=== PATIENT | female | born 1965 | race Caucasian/White ===

== ENCOUNTER 2021-09-19 13:50 | Outpatient (CLI) | payer OTHER, SELFPAY | END 2021-09-19 13:51 | disposition home or self-care (01) | LOC: LKVREF 13:53 | PROVIDERS: PCP Physician Assistant Medical; Visit Provider Nurse Practitioner Family | DX: M79.651 Pain in right thigh (principal); W57.XXXA Bitten or stung by nonvenomous insect and other nonvenomous arthropods, initial encounter | CPT/HCPCS: 86618 ==

== ENCOUNTER 2022-05-02 10:40 | Emergency (ER) | payer OTHER, SELFPAY ==
[2022-05-02] VITALS (19 sets, daily range): BP systolic 123–150; BP diastolic 62–89; PULSE 74–84; RESP 20; TEMP 36.3; O2SAT 96–100; BMI 24.9
--- NOTE | 2022-05-02 11:40 | CRLHL7_ITS ---
For Patients: As a result of the Century Cures Act, medical imaging exams and procedure reports are released immediately into your electronic medical record. You may view this report before your referring provider. If you have questions, please contact your health care provider. INDICATION: Abdominal pain. TECHNIQUE: CT abdomen and pelvis acquired with 71 cc Omnipaque 370 IV contrast. COMPARISON: 12/04/2020. FINDINGS: Lower chest: Scattered calcified granulomas at the lung bases. Liver: Few small hepatic calcifications, compatible with prior granulomatous infection. No suspicious hepatic lesion. Gallbladder and bile ducts: Unremarkable. No stones or inflammation. No biliary dilatation. Pancreas: Unremarkable. No mass or inflammation. Spleen: A few small calcified splenic granulomas Adrenal glands: Unremarkable. No nodules. Kidneys: Few hyperdense renal cortical lesions that are too small to characterize, likely cysts. GI tract: Scattered fluid-filled small-bowel loops, some of which are borderline dilated measuring up to approximately 2.5 centimeters. Distal small bowel loops. Distal loops are relatively decompressed. No abrupt transition is evident. Status post appendectomy. Scattered colonic diverticula without evidence of acute diverticulitis. Vasculature: Abdominal aorta is normal in caliber. Mesenteric arteries are patent. Lymph nodes: No lymphadenopathy. Peritoneum/Abdominal Wall: Unremarkable. No sign of mass or infiltration. No free air or significant free fluid. Pelvis: Status post hysterectomy Bones: Degenerative spondylosis IMPRESSION: 1. Multiple fluid-filled small bowel loops, some of which are borderline dilated. Distal loops appear relatively decompressed. No discrete transition is evident. This pattern is nonspecific. Consider enteritis as well as low-grade partial small bowel obstruction. 2. Colonic diverticulosis without evidence of acute diverticulitis. 3. Status post appendectomy and hysterectomy. 4. sequela of prior granulomatous disease Please note that all CT scans at this facility use dose modulation, iterative reconstruction, and/or weight-based dosing when appropriate to reduce radiation dose to as low as reasonably achievable. Dictated by Neto Mckenna MD @ 05/02/2022 1:43:34 PM (Electronically Signed)
[2022-05-02] MEDS: 0.9 % SODIUM CHLORIDE 1000 ml 1,000 ML IV (11:43)
[2022-05-02 11:44] LABS: Lactate* 0.8 mmol/L (0.5-1.9)
[2022-05-02 11:45] LABS: Basophils Absolute Auto 0.03 K/uL (0.00-0.30); Basophils Percent Auto 0.4 % (0.0-3.0); Eosinophils Absolute Auto 0.03 K/uL (0.00-0.50); Eosinophils Percent Auto 0.4 % (0.0-7.0); Hemoglobin* 15.2 gm/dL (12.0-16.0); Immature Granulocytes Abs Auto 0.01 K/uL (0.00-0.30); Immature Granulocytes Pct Auto 0.1 %; Lymphocytes Absolute Auto 1.99 K/uL (0.90-2.90); Lymphocytes Percent Auto 24.7 % (20-44); Mean Corpuscular HGB Conc 35 gm/dL (32-36); Mean Corpuscular Hemoglobin 32 pg (26-34); Mean Corpuscular Volume 94 fL (80-100); Monocytes Percent Auto 6.7 % (0.0-11.0); Neutrophils Absolute Auto 5.45 K/uL (1.7-7.0); Neutrophils Percent Auto 67.7 % (42.0-72.0); Platelet Count* 278 K/uL (140-440); RDW Coefficient of Variation % 11.4 % (11.5-15.5); Red Blood Count 4.69 m/uL (4.00-5.20); White Blood Count* 8.05 K/uL (4.50-11.00)
[2022-05-02] MEDS: ONDANSETRON 2 MG/ML inj 4 MG IVP (11:55)
[2022-05-02 11:57] LABS: Slide Review Reflex No
[2022-05-02] MEDS: MORPHINE 2 MG/ML inj IVP (11:57)
[2022-05-02 12:04] LABS: Albumin* 4.6 g/dL (3.3-5.0)
[2022-05-02 12:05] LABS: Chloride* 103 mmol/L (96-114); Potassium* 3.8 mmol/L (3.6-5.1); Sodium* 136 mmol/L (135-149)
[2022-05-02 12:07] LABS: Amylase* 80 U/L (18-89); Bilirubin Total* 1.7 mg/dL (0.1-1.5); Carbon Dioxide* 25 mmol/L (20-32); Creatinine* 0.5 mg/dL (0.5-1.5); Est. Creatinine Clearance* 105.91; Estimated Glomerular Filt Rate 109 ml/min; Total Protein* 7.6 g/dL (6.0-8.3)
[2022-05-02 12:08] LABS: Alanine Aminotransferase* 22 U/L (4-35); Alkaline Phosphatase* 111 U/L (40-150); Aspartate Amino Transferase* 27 U/L (12-35); Blood Urea Nitrogen* 16 mg/dL (7-30); Calcium* 9.2 mg/dL (8.4-10.6); Glucose* 98 mg/dL (60-115)
[2022-05-02 12:36] LABS: Appearance Urine Clear (Clear); Bilirubin Urine Negative (Negative); Blood Urine Negative (Negative); Color Urine Yellow (Yellow); Glucose Urine Negative (Negative); Ketones Urine Negative (Negative); Leukocyte Esterase Urine Negative (Negative); Nitrite Urine Negative (Negative); Protein Urine Negative (Negative); Specific Gravity Urine 1.015 (1.000-1.030); Urobilinogen Urine 0.2 (0.2-1.0); pH Urine 5.5 (5.0-8.5)
--- NOTE | 2022-05-02 12:57 | ED_ITS ---
HPI - Abdominal Pain General Chief Complaint: Abdominal Pain Stated Complaint: diverticulitus Time Seen by Provider: 05/02/22 11:20 History of Present Illness HPI narrative: Pt is a 56 year old woman with a history of repeated episodes of diverticulitis who presents with left sided lower abd pain. Mild nausea also noted. No fever or chills. No vomiting. Pt has had diarrhea but no blood passed per rectum. Pt states that this is consistent with previous episodes of diverticulitis. Pt has had no travel or sick contacts. Pain is sharp and moderate. Symptoms started last night and have progressed today. Pt does not tolerate Flagyl. Related Data Previous Rx's Medication Instructions Recorded citalopram 40 mg tablet 40 mg PO DAILY #90 tabs 10/22/21 hydrochlorothiazide 25 mg tablet 25 mg PO DAILY #90 tabs 10/22/21 losartan 50 mg tablet 50 mg PO DAILY #90 tabs 10/22/21 Allergies Allergy/AdvReac Type Severity Reaction Status Date / Time ibuprofen Allergy Severe Hives Verified 05/02/22 12:05 Erythromycin Allergy Mild Rash Uncoded 05/02/22 12:05 Review of Systems Status of ROS Reports: 10 or more systems reviewed and unremarkable except as noted in History and below [facility] Medical History Diverticulitis Surgical History History of colonoscopy with polypectomy Status post total replacement of left hip Status post total replacement of right hip Social History Smoking Status: Former smoker Do you use any of these nicotine containing products: Vaping Products Second hand tobacco smoke exposure: No How often do you have a drink containing alcohol: 2-3 times a week How many standard drinks containing alcohol do you have on a typical day: 1 or 2 How often do you have six or more drinks on one occasion: Never AUDIT-C Alcohol total score: 3 Non-prescribed substance use: denies use Exam Narrative: Exam Narrative: EXAM GENERAL: Patient appears comfortable and well. EYES: No scleral icterus. LYMPH: No supraclavicular or cervical lymphadenopathy. SKIN: Visible skin seen during exam normal or with benign process only. EXT: No dependent lower extremity pedal edema. HEART: Regular rate and rhythm with no murmurs, rubs, or gallops. LUNGS: Clear to auscultation bilaterally with no crackles or wheezes. ABD: Soft, minimally tender in left lower quadrant no rebound masses or guarding. PSYCH: Good eye contact, speech is not pressured. Const: Vital Signs, click to edit/add: Vital Signs - 24 hr 05/02/22 11:11 05/02/22 11:30 05/02/22 11:32 Temperature 97.3 F L Pulse Rate 75 74 Pulse Rate [Pulse Oximeter] 79 Respiratory Rate 20 Blood Pressure 133/86 Blood Pressure [Ri ght Upper Arm] 135/80 Pulse Oximetry 100 99 99 Oxygen Delivery Me thod Room Air 05/02/22 11:33 05/02/22 11:45 05/02/22 12:00 Temperature Pulse Rate 76 80 76 Pulse Rate [Pulse Oximeter] Respiratory Rate Blood Pressure Blood Pressure [Ri ght Upper Arm] Pulse Oximetry 99 96 99 Oxygen Delivery Me thod 05/02/22 12:01 05/02/22 12:02 05/02/22 12:15 Temperature Pulse Rate 77 74 75 Pulse Rate [Pulse Oximeter] Respiratory Rate Blood Pressure 131/86 Blood Pressure [Ri ght Upper Arm] Pulse Oximetry 98 97 99 Oxygen Delivery Me thod 05/02/22 12:33 05/02/22 12:34 05/02/22 12:45 Temperature Pulse Rate 80 82 84 Pulse Rate [Pulse Oximeter] Respiratory Rate Blood Pressure 150/62 H Blood Pressure [Ri ght Upper Arm] Pulse Oximetry 98 100 99 Oxygen Delivery Me thod 05/02/22 13:00 05/02/22 13:01 Temperature Pulse Rate 80 84 Pulse Rate [Pulse Oximeter] Respiratory Rate Blood Pressure 142/89 H Blood Pressure [Ri ght Upper Arm] Pulse Oximetry 99 98 Oxygen Delivery Me thod Course Course Hospital Course: CT of abd and pelvis shows enteritis. No bowel obstruction. Labs reassuring. Vital Signs Vital signs: Initial Vital Signs Temperature 97.3 F L 05/02/22 11:11 Temperature Source Temporal Artery Scan 05/02/22 11:11 Pulse Rate 79 05/02/22 11:11 Respiratory Rate 20 05/02/22 11:11 Blood Pressure 135/80 05/02/22 11:11 Blood Pressure Mean 98 05/02/22 11:11 Blood Pressure Position Sitting 05/02/22 11:11 Pulse Oximetry 100 05/02/22 11:11 Oxygen Delivery Method 05/02/22 11:11 Vital Signs Temperature 97.3 F L 05/02/22 11:11 Pulse Rate 79 05/02/22 11:11 Respiratory Rate 20 05/02/22 11:11 Blood Pressure 135/80 05/02/22 11:11 Pulse Oximetry 100 05/02/22 11:11 Oxygen Delivery Method 05/02/22 11:11 Temperature 97.3 F L 05/02/22 11:11 Pulse Rate 84 05/02/22 13:01 Respiratory Rate 20 05/02/22 11:11 Blood Pressure 142/89 H 05/02/22 13:01 Pulse Oximetry 98 05/02/22 13:01 Oxygen Delivery Method 05/02/22 11:11 MDM - Abdominal Pain MDM Narrative Medical decision making narrative: Pt is a 56 year old woman with recurrent diverticulitis who comes in with left sided abd pain. Labs reassuring. CT shows eneritis without bowel obstruction. Pt passing gas. Pt given zofran, normal saline, morphine with resolution of symptoms. Will proceed with symptomatic treatment, bland diet, PCP follow up. Differential Diagnosis Differential diagnosis: Likely abdominal pain, acute appendicitis, calculus of kidney, constipation, diverticulitis, endometriosis, gastroenteritis and small bowel obstruction Medical Records Attestation: I reviewed the patient's medical records. Lab Data Labs: Lab Results 05/02/22 05/02/22 05/02/22 Range/Units 11:35 11:35 11:35 WBC 8.05 (4.50-11.00) K/uL RBC 4.69 (4.00-5.20) m/uL Hgb 15.2 (12.0-16.0) gm/dL Hct 44.0 (33.0-51.0) % MCV 94 (80-100) fL MCH 32 (26-34) pg MCHC 35 (32-36) gm/dL RDW Coeff of Mehul 11.4 L (11.5-15.5) % Plt Count 278 (140-440) K/uL Neut % (Auto) 67.7 (42.0-72.0) % Lymph % (Auto) 24.7 (20-44) % Baker % (Auto) 6.7 (0.0-11.0) % Eos % (Auto) 0.4 (0.0-7.0) % Baso % (Auto) 0.4 (0.0-3.0) % Neut # (Auto) 5.45 (1.7-7.0) K/uL Lymph # (Auto) 1.99 (0.90-2.90) K/uL Baker # (Auto) 0.50 (0.00-0.90) K/UL Eos # (Auto) 0.03 (0.00-0.50) K/uL Baso # (Auto) 0.03 (0.00-0.30) K/uL Sodium 136 (135-149) mmol/L Potassium 3.8 (3.6-5.1) mmol/L Chloride 103 (96-114) mmol/L Carbon Dioxide 25 (20-32) mmol/L BUN 16 (7-30) mg/dL Creatinine 0.5 (0.5-1.5) mg/dL Estimated Creat Clear 105.91 Estimated GFR 109 ml/min Glucose 98 (60-115) mg/dL Lactate 0.8 (0.5-1.9) mmol/L Calcium 9.2 (8.4-10.6) mg/dL Total Bilirubin 1.7 H (0.1-1.5) mg/dL AST 27 (12-35) U/L ALT 22 (4-35) U/L Alkaline Phosphatase 111 (40-150) U/L Total Protein 7.6 (6.0-8.3) g/dL Albumin 4.6 (3.3-5.0) g/dL Amylase 80 (18-89) U/L Urine Color (Yellow) Urine Appearance (Clear) Urine pH (5.0-8.5) Ur Specific [place] (1.000-1.030) Urine Protein (Negative) Urine Glucose (UA) (Negative) Urine Ketones (Negative) Urine Blood (Negative) Urine Nitrite (Negative) Urine Bilirubin (Negative) Urine Urobilinogen (0.2-1.0) Ur Leukocyte Esterase (Negative) 05/02/22 Range/Units 12:28 WBC (4.50-11.00) K/uL RBC (4.00-5.20) m/uL Hgb (12.0-16.0) gm/dL Hct (33.0-51.0) % MCV (80-100) fL MCH (26-34) pg MCHC (32-36) gm/dL RDW Coeff of Mehul (11.5-15.5) % Plt Count (140-440) K/uL Neut % (Auto) (42.0-72.0) % Lymph % (Auto) (20-44) % Baker % (Auto) (0.0-11.0) % Eos % (Auto) (0.0-7.0) % Baso % (Auto) (0.0-3.0) % Neut # (Auto) (1.7-7.0) K/uL Lymph # (Auto) (0.90-2.90) K/uL Baker # (Auto) (0.00-0.90) K/UL Eos # (Auto) (0.00-0.50) K/uL Baso # (Auto) (0.00-0.30) K/uL Sodium (135-149) mmol/L Potassium (3.6-5.1) mmol/L Chloride (96-114) mmol/L Carbon Dioxide (20-32) mmol/L BUN (7-30) mg/dL Creatinine (0.5-1.5) mg/dL Estimated Creat Clear Estimated GFR ml/min Glucose (60-115) mg/dL Lactate (0.5-1.9) mmol/L Calcium (8.4-10.6) mg/dL Total Bilirubin (0.1-1.5) mg/dL AST (12-35) U/L ALT (4-35) U/L Alkaline Phosphatase (40-150) U/L Total Protein (6.0-8.3) g/dL Albumin (3.3-5.0) g/dL Amylase (18-89) U/L Urine Color Yellow (Yellow) Urine Appearance Clear (Clear) Urine pH 5.5 (5.0-8.5) Ur Specific [place] 1.015 (1.000-1.030) Urine Protein Negative (Negative) Urine Glucose (UA) Negative (Negative) Urine Ketones Negative (Negative) Urine Blood Negative (Negative) Urine Nitrite Negative (Negative) Urine Bilirubin Negative (Negative) Urine Urobilinogen 0.2 (0.2-1.0) Ur Leukocyte Esterase Negative (Negative) Discharge Plan Discharge Clinical Impression: Enteritis Condition: Stable Instructions: Enteritis (ED) Additional Instructions: Clear liquid diet for the next 3 days Tylenol Motrin Rest Follow up with PCP next week. Activity Level: No Restrictions Discharge Diet: Clear Liquid Prescriptions: No Action losartan 50 mg tablet 50 mg PO DAILY Qty: 90 3RF Rx Instructions: For blood pressure citalopram 40 mg tablet 40 mg PO DAILY Qty: 90 3RF Rx Instructions: For mood support hydrochlorothiazide 25 mg tablet 25 mg PO DAILY Qty: 90 3RF Rx Instructions: For blood pressure Follow Up/Referrals: Kayleigh Bermudez PA-C [Primary Care Provider] - Stand Alone Forms: [employer] Info Instructions
== END 2022-05-02 14:04 | disposition home or self-care (01) ==
PROVIDERS: Emergency Provider Internal Medicine; PCP Physician Assistant Medical
DX: K52.9 Noninfective gastroenteritis and colitis, unspecified (principal)
CPT/HCPCS: 36415; 74177; 80053; 81003; 82150; 83605; 85025; 96374; 96375; 99283; 99284; J2270; J2405; J7030; Q9967

== ENCOUNTER 2022-12-12 09:29 | Outpatient (CLI) | payer OTHER, SELFPAY ==
--- OUTSIDE RECORDS SUMMARY | 2022-12-12 09:35 | XMS_ITS | Continuity of Care Document ---
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 Name Role Phone Matt Hoover DO Unavailable Unavailable Allergies, Adverse Reactions, Alerts Substance Reaction Status Criticality NSAIDS (Non-Steroidal Anti-Inflammatory Drug) Active No Information erythromycin base Active No Informa tion Medications Medication Instructions Dosage Effective Dates (start - stop) Status Comments Vivelle-Dot 0.075 mg/24 hr Transderm Patch apply 1 patch by transdermal route 2 times every week 1 patch - Active multivitamin Tab take 1 tablet by ora l route every day 1 tablet - Active Vitamin D3 2,000 unit Tab take 1 Tablet by Oral route 3 times every day 1 Tablet - Active flaxseed oil 1,000 mg Cap take 1 Capsule by Oral route 2 times every day - Active Procedures Procedure Date Office/Outpatient Visit, New Routine Venipuncture Specimen Handling CReactive Protein Complete Cbc WAuto Diff Wbc Rbc Sed Rate, Nonautomated Results Test Name Date and Time Measure Units Reference Range Abnormal Flag Status Comments Panel Description: Celiac Disease Ab Screen w/Rf x Final Deamidated Gliadin Abs, IgA 2012 16:10:0 0 2 units 0-19 Final Negative 0 - 1 9 Weak Positive 20 - 30 Moderate to Strong Positive >30 t-Transglutamina se (tTG) IgA 2012 16:10:0 0 <2 U/mL 0-3 Final Negative 0 - 3 Weak Positive 4 - 10 Positive >10 . Tissue Transglutaminase (tTG) has been identified as the endomysial antigen. Studies have demonstr- ated that endomysial IgA antibodies have over 99% specificity for gluten sensitive enteropathy. Immunoglobulin A, Qn, Serum 2012 16:10:0 0 106 mg/dL 91-414 Final Panel Description: Endomysial Antibody IgA Kika sifuentes Endomysial Antibody IgA 2012 16:10:0 0 Negative Negative Final Panel Description: HCV Ab w/Rflx to Verification Final HCV Ab 2012 16:10:0 0 0.0 s/co ratio 0.0-0.9 Final Panel Description: Rheumatoid Arthritis Factor Final RA Latex Turbid. 2012 16:10:0 0 31.6 IU/mL 0.0-13.9 H Final Panel Description: Comment: Final Comment: 2012 16:10:0 0 Comment Final Non reactive H CV antibody screen is consistent with no HCV infection,unless recent infection is suspected or other evidence exists toindicate HCV infection. Panel Description: CBC Final WBC 2012 15:24:0 0 6.5 K/uL 3.5-10.8 Final Lymphocyte% 2012 15:24:0 0 34.1 % 15.1-43.0 Final Mid% 2012 15:24:0 0 6.4 % 1.0-18.0 Final Gran% 2012 15:24:0 0 59.5 % 45.0-76.0 Final Lymphocyte # 2012 15:24:0 0 2.2 K/uL 0.9-5.2 Final Mid # 2012 15:24:0 0 0.4 K/uL 0.1-2.0 Final Gran # 2012 15:24:0 0 3.9 K/uL 1.4-9.1 Final RBC 2012 15:24:0 0 4.45 M/uL 3.80-5.20 Final Hemoglobin 2012 15:24:0 0 14.0 g/dL 11.5-16.0 Final Hematocrit 2012 15:24:0 0 41.5 % 36.0-49.0 Final MCV 2012 15:24:0 0 93 fL 81-100 Final MCH 2012 15:24:0 0 32 pg 27-35 Final MCHC 2012 15:24:0 0 33.7 g/dL 31.0-37.5 Final MPV 2012 15:24:0 0 10.1 fL 7.0-10.4 Final Platelet Count 2012 15:24:0 0 323 K/uL 130-400 Final Panel Description: ESR Final ESR 2012 15:24:0 0 6 mm/hr 0-25 Final Panel Description: CRP Final CRP 2012 15:31:0 0 0.17 MG/DL 0.00-0.60 Final Advance Directives Directive Yes / No Effective Date File Name Resuscitation Not Answered N/A N/A Life Support Not Answered N/A N/A Intubation Not Answered N/A N/A Antibiotics Not Answered N/A N/A IV Fluid Support Not Answered N/A N/A Tube Feed Not Answered N/A N/A Other Directive N/A N/A WARNING:The information contained in this section is historical and is provided for information only and does not constitute a legal document or any assurance that the information is still accurate. Please verify the information with the hare of the legal document before using it for clinical purposes. Encounters Encounter Description Practice Location Reason(s) For Visit Diagnoses Date Provider Providers Copied on Encounter Office/Outpa tient Visit, [facility] , [address], [place], [address], [place] tel:[phone] [facility] , Musculoskele milagro Pain (chief complaint) Myalgia and myositis, unspecifiedP ain in joint involving multiple sitesLumbago Jun- 0-201 3 Kiko Gutierrez. [facility] [address], [place], [address], [place]. tel:[phone] Referring Provider: Matt Sifuentes, [facility] [address], [place], [address]. tel:[phone] [facility] , [address], [place], [address], [place] tel:[phone] [facility] , No Information 3 Kiko Gutierrez. [facility] [address], [place], [address], [place]. tel:[phone] Family History Family Member Type Diagnosis Age At Onset No Information Payers Payer name Insurance type Covered green party ID Perfecto lopez(nicol Gilmore [id number] Social History Type Description Quantity Date Captured Comments Alcohol Use Details 5 glasses weekly 3 Caffeine Use Details Unknown Tobacco Use Status No Information Smoking Status Former smoker Smoking Tobacco Use Details Cigarette: No Details Available Cigarette: No Details Available Sex Female Vital Signs Date / Time: Height Weight BMI Pulse Rate Blood Pressure Temperature Respiratory Rate Body Surface Area Head Circumference Head Circ. Percentile Wt./Velasquez. Percentile BMI percentile Pulse Ox Inhaled Ox 1:04 PM 64.00 in 150.00 lbs 25.7 4 kg/m eter (2) 112/76 mm[Hg] 97.50 F Chief Complaint And Reason For Visit From encounter dated '07/01/2012 13:00'. Musculoskeletal Pain (chief complaint) Reason For Referral Reason For Referral No Information History Of Present Illness Encounter Date Complaint History Of Prese nt Illness No Information Functional Status Date Functional Assessmen t No Information Instructions Date Instruction Additional Infor mation No Information Assessments Type Assessment Date No Information Mental Status Date Cognitive Assessment Orientation - [place] ed to time, place, person, situation. Patient Care Teams Name Effective Dates (start - stop) Status Members No Information
== END 2022-12-12 09:30 | disposition home or self-care (01) ==
PROVIDERS: PCP Physician Assistant Medical; Visit Provider Physician Assistant Medical
DX: Z00.00 Encounter for general adult medical examination without abnormal findings (principal); I10 Essential (primary) hypertension; R42 Dizziness and giddiness; F41.9 Anxiety disorder, unspecified; Z13.6 Encounter for screening for cardiovascular disorders; Z13.29 Encounter for screening for other suspected endocrine disorder; Z13.21 Encounter for screening for nutritional disorder; R51.9 Headache, unspecified
CPT/HCPCS: 80053; 80061; 82306; 82607; 84443

== ENCOUNTER 2024-05-06 08:20 | Outpatient (CLI) | payer OTHER, SELFPAY | END 2024-05-06 08:21 | disposition home or self-care (01) | PROVIDERS: PCP Physician Assistant Medical; Visit Provider Physician Assistant Medical | DX: E55.9 Vitamin D deficiency, unspecified (principal); I10 Essential (primary) hypertension; R10.13 Epigastric pain; F41.9 Anxiety disorder, unspecified; Z13.6 Encounter for screening for cardiovascular disorders; Z13.0 Encounter for screening for diseases of the blood and blood-forming organs and certain disorders involving the immune mechanism | CPT/HCPCS: 80053; 80061; 80076; 83690; 87086 ==

== ENCOUNTER 2024-05-06 10:28 | Outpatient (CLI) | payer OTHER, SELFPAY | END 2024-05-06 10:29 | disposition home or self-care (01) | LOC: US 10:29 | PROVIDERS: PCP Physician Assistant Medical; Visit Provider Physician Assistant Medical | DX: R10.13 Epigastric pain (principal); K76.0 Fatty (change of) liver, not elsewhere classified | CPT/HCPCS: 76705 ==

== ENCOUNTER 2024-05-10 13:02 | Outpatient (CLI) | payer OTHER, SELFPAY | END 2024-05-10 13:03 | disposition home or self-care (01) | LOC: NFLDREF 05-13 03:58 | PROVIDERS: PCP Physician Assistant Medical; Referring Provider Physician Assistant Medical; Visit Provider Physician Assistant Medical | DX: R10.13 Epigastric pain (principal); E87.6 Hypokalemia | CPT/HCPCS: 80076 ==

== ENCOUNTER 2024-05-11 06:45 | Outpatient (CLI) | payer OTHER, SELFPAY | END 2024-05-11 06:46 | disposition home or self-care (01) | LOC: NFLDREF 05-16 14:18 | PROVIDERS: PCP Physician Assistant Medical; Referring Provider Physician Assistant Medical; Visit Provider Physician Assistant Medical | DX: R10.13 Epigastric pain (principal); E87.6 Hypokalemia | CPT/HCPCS: 87338 ==

== ENCOUNTER 2024-05-24 09:50 | Outpatient (CLI) | payer OTHER, SELFPAY ==
--- NOTE | 2024-05-24 10:57 | W.ANESCHARGE ---
Anesthesia Charges Start Date/Time Anesthesia Start Date: 05/24/24 Anesthesia Start Time: 10:35 Stop Date/Time Anesthesia Stop Date: 05/24/24 Anesthesia Stop Time: 10:55 Coding CPT Codes CPT Codes: ANES UPR GI NDSC PX NOS - 54994 ([id number]) P2 - PATIENT W/MILD SYST DISEASE, QK - PSYCHOLOGICAL OPERATIONS 2-4 CNCRNT ANES PROC, QX - OIL SPRAYER SVC W/ MD MED DIRECTION
--- NOTE | 2024-05-24 10:58 | W.ANESCHARGE ---
Anesthesia Charges Start Date/Time Anesthesia Start Date: 05/24/24 Anesthesia Start Time: 10:35 Stop Date/Time Anesthesia Stop Date: 05/24/24 Anesthesia Stop Time: 10:55 Coding CPT Codes CPT Codes: ANES UPR GI NDSC PX NOS - 57132 ([id number]) P2 - PATIENT W/MILD SYST DISEASE, QK - STEEL CHIPPER 2-4 CNCRNT ANES PROC, QX - ENTRY LEVEL JAVA DEVELOPER SVC W/ MD MED DIRECTION
== END 2024-05-24 09:51 | disposition home or self-care (01) ==
LOC: OP CLINIC 09:50
PROVIDERS: PCP Physician Assistant Medical; Visit Provider Surgery
DX: R10.13 Epigastric pain (principal); K44.9 Diaphragmatic hernia without obstruction or gangrene; K31.7 Polyp of stomach and duodenum; K31.89 Other diseases of stomach and duodenum
CPT/HCPCS: 00731; 43239; 88305; J2405; J2704; J3490

== ENCOUNTER 2024-06-14 08:20 | Outpatient (CLI) | payer OTHER, SELFPAY | END 2024-06-14 08:21 | disposition home or self-care (01) | PROVIDERS: PCP Physician Assistant Medical; Visit Provider Physician Assistant Medical | DX: R10.13 Epigastric pain (principal); E55.9 Vitamin D deficiency, unspecified; R63.4 Abnormal weight loss; Z13.29 Encounter for screening for other suspected endocrine disorder | CPT/HCPCS: 80053; 82306; 84443 ==

== ENCOUNTER 2024-06-22 11:02 | Outpatient (CLI) | payer OTHER, SELFPAY ==
--- NOTE | 2024-06-22 11:30 | CRLHL7_ITS ---
For Patients: As a result of the Century Cures Act, medical imaging exams and procedure reports are released immediately into your electronic medical record. You may view this report before your referring provider. If you have questions, please contact your health care provider. INDICATION: 59-year-old woman with history of epigastric pain TECHNIQUE: 7.1 mCi Tc 99m Mebrofenin were administered intravenously and serial static images were obtained over the anterior abdomen over 60 minutes, demonstrating radiotracer uptake within the gallbladder and demonstrating tracer exiting into the small bowel. Subsequently, 1.18 micrograms cholecystokinin was administered intravenously and the anterior abdomen was serially imaged with static views for another 30 minutes. COMPARISON: Abdominal ultrasound 05/06/2024 FINDINGS: There is normal radionuclide activity in the liver, common bile duct, gallbladder and small bowel. There is no evidence for cystic or common duct obstruction or intrinsic liver disease. After administration of cholecystokinin, tracer is demonstrated exiting the gallbladder into the common bile duct and small bowel. The gallbladder ejection fraction measures 96%. Normal range for GB EF: Equal to or greater than 35%. IMPRESSION: 1. Normal hepatobiliary scan. 2. Gallbladder ejection fraction measures 96%, within normal limits. Dictated by Phil Langley MD @ 06/22/2024 1:23:59 PM (Electronically Signed)
== END 2024-06-22 11:03 | disposition home or self-care (01) ==
LOC: NM 11:03
PROVIDERS: PCP Physician Assistant Medical; Visit Provider Physician Assistant Medical
DX: R10.13 Epigastric pain (principal); R63.4 Abnormal weight loss
CPT/HCPCS: 78227; A9537; J2805

== ENCOUNTER 2024-06-24 07:31 | Outpatient (CLI) | payer OTHER, SELFPAY ==
--- NOTE | 2024-06-24 08:00 | CRLHL7_ITS ---
For Patients: As a result of the Century Cures Act, medical imaging exams and procedure reports are released immediately into your electronic medical record. You may view this report before your referring provider. If you have questions, please contact your health care provider. Indication: eval for malignancy; eval hiatal hernia Technique: CT Abdomen/Pelvis W/ 65CC ISOVUE 370 intravenous contrast Please note that all CT scans at this facility use dose modulation, iterative reconstruction, and/or weight-based dosing when appropriate to reduce radiation dose to as low as reasonably achievable. Comparison: Ultrasound 05/06/2024 Findings: Multiple small calcified granulomas are present within the visualized lung bases. Calcified granulomas also present within the spleen and liver. Calcified lymph nodes at the GE junction. Focal fat deposition within the liver is present adjacent to the falciform ligament. No suspicious intrahepatic mass. The gallbladder is unremarkable. Normal pancreas. Adrenal glands normal. Sub cm cyst upper pole left kidney. Right kidney normal. Bladder unremarkable. Postop changes appendectomy. Left hip replacement hardware. Degenerative joint disease right hip, severe. Multilevel degenerative disc disease. No vertebral body compression fracture. Small fat filled umbilical hernia. Normal-sized lymph nodes throughout the abdomen and pelvis. Colonic diverticulosis without diverticulitis. No bowel obstruction, free air or free fluid. No abscess. Impression: Sequela of old granulomatous disease. No suspicious findings. No acute disease. No evidence of hiatal hernia. Please note that all CT scans at this facility use dose modulation, iterative reconstruction, and/or weight-based dosing when appropriate to reduce radiation dose to as low as reasonably achievable. Dictated by Lj Otoole MD @ 06/25/2024 10:35:53 AM (Electronically Signed)
--- NOTE | 2024-06-24 08:30 | CRLHL7_ITS ---
For Patients: As a result of the Century Cures Act, medical imaging exams and procedure reports are released immediately into your electronic medical record. You may view this report before your referring provider. If you have questions, please contact your health care provider. INDICATION: Lung cancer screening. History of smoking. High risk patient with greater than 25 pack-year smoking history. TECHNIQUE: Low-dose lung cancer screening non-contrast CT chest. Dose reduction techniques were used. COMPARISON: None. FINDINGS: NODULES: Multiple bilateral calcified pulmonary nodules are present bilaterally measuring 3.8 cm compatible with old granulomatous change. LUNGS AND PLEURA: No infiltrate or edema. No effusion. MEDIASTINUM: Calcified mediastinal and hilar lymph nodes noted from old granulomatous disease. CORONARY ARTERY CALCIFICATION: Mild. LIMITED UPPER ABDOMEN: Calcified lymph nodes are present at the GE junction. MUSCULOSKELETAL: Multilevel degenerative disc disease. No vertebral body compression fracture. IMPRESSION: Negative for lung cancer screening purposes. LUNG-RADS CATEGORY: 2: Benign. RADIOLOGIST RECOMMENDATION: Continue annual screening with low-dose CT chest in 12 months. Please note that all CT scans at this facility use dose modulation, iterative reconstruction, and/or weight-based dosing when appropriate to reduce radiation dose to as low as reasonably achievable. Dictated by Lj Otoole MD @ 06/25/2024 10:30:10 AM (Electronically Signed)
== END 2024-06-24 07:32 | disposition home or self-care (01) ==
LOC: CT 07:31
PROVIDERS: PCP Physician Assistant Medical; Visit Provider Physician Assistant Medical
DX: Z12.2 Encounter for screening for malignant neoplasm of respiratory organs (principal); Z72.0 Tobacco use; R10.13 Epigastric pain; R63.4 Abnormal weight loss
CPT/HCPCS: 71271; 74177; Q9967

== ENCOUNTER 2024-11-08 14:06 | Outpatient (CLI) | payer OTHER, SELFPAY ==
--- NOTE | 2024-11-08 14:30 | CRLHL7_ITS ---
For Patients: As a result of the Century Cures Act, medical imaging exams and procedure reports are released immediately into your electronic medical record. You may view this report before your referring provider. If you have questions, please contact your health care provider. EXAM: MRI OF THE RIGHT SHOULDER, WITHOUT CONTRAST CLINICAL INDICATION: Shoulder pain. PRIOR SURGERY: None reported. COMPARISON PLAIN FILMS: 21 October 2024. COMPARISON CROSS-SECTIONAL IMAGING STUDIES: None available at time of interpretation. TECHNICAL: Axial, sagittal oblique and coronal oblique T1, PD, PD FS and T2-weighted images. FINDINGS: GLENOHUMERAL JOINT: Effusion/Cyst: Moderate effusion. No significant synovitis. No periarticular fluid collection. Humeral Head Articular Cartilage: Diffuse grade 2 thinning. Band of grade 3 thinning through the central articulating humeral head best appreciated on the sagittal sequences. Glenoid Articular Cartilage: Shallow grade 2 thinning. Loose Bodies: Intermediate signal line of filling defect likely intra-articular body superior subscapular recess estimated 15 mm length. Capsule: No convincing evidence of adhesive capsulitis or capsular injury. OSSEOUS STRUCTURES: No fracture, marrow edema or marrow replacement process. CORACOACROMIAL ARCH: Acromial Morphology: Type 2 acromial morphology. No abnormal lateral or anterior downward sloping of the acromion. No os acromiale. No significant subacromial spur. Lateral acromial thickness is 6 mm. Acromiohumeral Interval: The acromiohumeral interval is adequately patent. At its narrowest, the interval measures 6 mm. No abnormal thickening of the coracoacromial ligament. Coracohumeral Interval: The coracohumeral interval is normal. At its narrowest, the coracohumeral interval measures greater than 10 mm. Coracoid index is less than 10 mm. ACROMIOCLAVICULAR JOINT REGION: AC Joint: Moderate hypertrophic arthrosis. Hypertrophy joint contacts and indents the supraspinatus slightly. Ligaments: The coracoclavicular ligaments are intact. BURSAE: Subacromial-Subdeltoid: A large volume of fluid throughout the bursa. Is most pronounced over the lateral and anterior deltoid. Some synovitis suggested under the acromion. Subcoracoid: No abnormal bursal edema, thickening or bursal fluid. ROTATOR CUFF TENDONS AND MUSCLES AND DELTOID: Supraspinatus: Patchy hazy moderate intermediate signal tendinosis mildly expands distal tendon footplate. No high-grade partial or full-thickness tear. No atrophy or edema in the muscle. Infraspinatus: Mild hazy tendinosis slightly expands distal tendon without tear. No atrophy or edema in the muscle. Teres Minor: No tendinosis, tendon tearing, muscle atrophy or muscle edema. Subscapularis: Patchy tendinosis and shallow articular low-grade tearing at the insertion. No atrophy or edema in the muscle. Deltoid: No muscle atrophy or edema. BICEPS TENDON, LONG HEAD: The long head of the biceps tendon is appropriately positioned within the bicipital groove without tendon subluxation or dislocation. The biceps khadra mechanism is intact. The biceps anchor appears grossly intact. There is no significant tendinosis or tendon tearing. Large volume of fluid distending the tendon sheath. GLENOID LABRUM: Intermediate signal mucoid appearance in the superior labrum. Shallow partial tear at the labral chondral junction posteriorly with blunted margins of the posterior and inferior labrum from shallow degenerative marginal tearing. No anterior labral tear appreciated. OTHER FINDINGS: There is no abnormality within the suprascapular or spinoglenoid notches nor within the quadrilateral space. No axillary adenopathy or mass. IMPRESSION: 1. Moderately large glenohumeral joint effusion and prominent biceps tenosynovitis. 2. Linear intra-articular body or prominent synovial synechia superior subscapular recess. 3. Mild degenerative chondromalacia glenohumeral joint. Broad band of grade 3 chondromalacia in the central humeral head may be the source of intra-articular body. 4. Tendinosis without significant tearing supraspinatus and infraspinatus. Mild tendinosis and shallow articular tearing subscapularis. 5. Mildly prominent subacromial/subdeltoid bursitis. 6. Moderate hypertrophic arthrosis AC joint. Dictated by Wallace Hernandez MD @ 11/09/2024 4:09:52 PM (Electronically Signed)
== END 2024-11-08 14:07 | disposition home or self-care (01) ==
LOC: MRI 14:06
PROVIDERS: PCP Physician Assistant Medical; Visit Provider Emergency Medicine
DX: M25.511 Pain in right shoulder (principal); M25.411 Effusion, right shoulder; M94.211 Chondromalacia, right shoulder; M75.51 Bursitis of right shoulder
CPT/HCPCS: 73221

== ENCOUNTER 2025-02-23 15:39 | Outpatient (CLI) | payer OTHER, SELFPAY | END 2025-02-23 15:40 | disposition home or self-care (01) | PROVIDERS: PCP Physician Assistant Medical; Visit Provider Physician Assistant Medical | DX: Z00.00 Encounter for general adult medical examination without abnormal findings (principal) | CPT/HCPCS: 80053 ==

== ENCOUNTER 2025-03-07 06:00 | Day surgery (SDC) | payer OTHER, SELFPAY ==
[2025-03-07] VITALS (17 sets, daily range): BP systolic 97–134; BP diastolic 50–99; PULSE 74–101; RESP 12–16; TEMP 36.6–36.9; O2SAT 91–100; BMI 23.0
[2025-03-07] MEDS: LACTATED RINGERS 1000 ML 1,000 ML 100 ML IV ×3 (06:15→12:05)
[2025-03-07] MEDS: OXYCODONE (CR) 10 MG TAB.ER.12H PO (07:00)
[2025-03-07] MEDS: ACETAMINOPHEN 500 MG TABLET 1000 MG PO (07:00)
[2025-03-07] MEDS: SODIUM CHLORIDE 0.9 % (FLUSH) 10 ML SYRINGE IVF (07:07)
--- NOTE | 2025-03-07 07:15 | CRLHL7_ITS ---
For Patients: As a result of the Cures Act, medical imaging exams and procedure reports are released immediately into your electronic medical record. You may view this report before your referring provider. If you have questions, please contact your health care provider. Indication: Hip replacement surgery Technique: AP hip fluoroscopic image. Fluoroscopy time 45.4 seconds. Findings/Impression: Hardware from a right total hip arthroplasty is in satisfactory position. Dictated by Lj Otoole MD @ 03/07/2025 9:22:23 AM (Electronically Signed)
--- NOTE | 2025-03-07 07:18 | W.PM.H&PU ---
History & Physical Update History & Physical Update H&P Reviewed and patient assessed: No changes noted
[2025-03-07] MEDS: MIDAZOLAM HCL 1 MG/ML inj IVP (07:19)
--- NOTE | 2025-03-07 07:22 | SUR.PREOP ---
TIME?OUT:?0718 PT/RN/MDA?VERIFICATION?OF?SURGICAL?SITE,?PROCEDURE,?AND?CONSENT OBTAINED?PRIOR?TO?INVASIVE?PROCEDURE.
[2025-03-07] MEDS: TRANEXAMIC ACID 100 MG/ML INJ 1000 MG IV (07:55)
--- NOTE | 2025-03-07 08:23 | SUR.OPER ---
PATIENT QUESTIONS ANSWERED SATISFACTORILY PREOPERATIVELY. PATIENT BROUGHT TO OR #2 PER CART AFTER ADMINISTRATION OF A BLOCK. Patient positioned supine on OR #2 bed. The perioperative team supported left arm on arm board. Right arm wrapped/padded on patient abdomen w/draw sheet. Final approval of positioning by surgeon.
--- NOTE | 2025-03-07 08:50 | P.ANES_ITS ---
Anesthesia Charges Start Date/Time Anesthesia Start Date: 03/07/25 Anesthesia Start Time: 07:31 Stop Date/Time Anesthesia Stop Date: 03/07/25 Anesthesia Stop Time: 10:09 Coding CPT Codes CPT Codes: ANESTH HIP ARTHROPLASTY - 36897 ([id number]) P2 - PATIENT W/MILD SYST DISEASE, QK - MERCHANDISING ASSISTANT 2-4 CNCRNT ANES PROC, QX - MANAGER BUSINESS INFORMATION SVC W/ MD MED DIRECTION
--- NOTE | 2025-03-07 08:50 | W.ANESCHARGE ---
Anesthesia Charges Start Date/Time Anesthesia Start Date: 03/07/25 Anesthesia Start Time: 07:31 Stop Date/Time Anesthesia Stop Date: 03/07/25 Anesthesia Stop Time: 10:09 Coding CPT Codes CPT Codes: ANESTH HIP ARTHROPLASTY - 41909 ([id number]) P2 - PATIENT W/MILD SYST DISEASE, QK - PROGRAM PROJECT ANALYST 2-4 CNCRNT ANES PROC, QX - INWEAVER SVC W/ MD MED DIRECTION
--- NOTE | 2025-03-07 09:00 | CRLHL7_ITS ---
For Patients: As a result of the Cures Act, medical imaging exams and procedure reports are released immediately into your electronic medical record. You may view this report before your referring provider. If you have questions, please contact your health care provider. Indication: Total hip replacement Technique: AP hip centered pelvis and lateral view right hip Findings/Impression: Hardware from a right total hip arthroplasty is in satisfactory position. Bone alignment is normal. No sign of acute fracture. Postop changes are within normal limits. Dictated by Lj Otoole MD @ 03/07/2025 10:35:20 AM (Electronically Signed)
--- NOTE | 2025-03-07 09:08 | P.NB_ITS ---
Nerve Block Nerve Block Time Seen by Provider: 07:20 Date Seen: 03/07/25 Type of block requested by surgeon for post-operative analgesia: SAGE/LFCN Side: right Time out performed: Yes Verification of patient name: Yes Verification of date of : Yes Site marking: site marked Name of person performing procedure: Gordon Continuous monitoring Was continuous monitoring of O2 sat, B/P, ground defence officer, recorded every 15 minutes?: Yes Procedure Checklist: sterile prep, needles and gloves Ultrasound guided. Images saved: Yes Medications given in 5ml increments after negative aspiration: Ropivicaine %: 0.5 mL: 30 Needle gauge: 20 Precedex (mcg): 25 Patient tolerated procedure well: Yes Additional comments: Needle noted below psoas tendon needle noted adjacent to LFCN Block Charges Block Charge (with Pro Fee): Other Periph Nerve Block Use of Ultrasound Machine for Block: Yes- US Guidance/pain block
--- NOTE | 2025-03-07 09:08 | P.ANES_ITS ---
Anesthesia Charges Start Date/Time Anesthesia Start Date: 03/07/25 Anesthesia Start Time: 07:31 Stop Date/Time Anesthesia Stop Date: 03/07/25 Anesthesia Stop Time: 10:09 Coding CPT Codes CPT Codes: ANESTH HIP ARTHROPLASTY - 47610 ([id number]) P2 - PATIENT W/MILD SYST DISEASE, QK - INSURANCE CLAIMS ASSISTANT 2-4 CNCRNT ANES PROC, QX - SUPERVISOR REFINING SVC W/ MD MED DIRECTION
--- NOTE | 2025-03-07 09:08 | W.ANESCHARGE ---
Anesthesia Charges Start Date/Time Anesthesia Start Date: 03/07/25 Anesthesia Start Time: 07:31 Stop Date/Time Anesthesia Stop Date: 03/07/25 Anesthesia Stop Time: 10:09 Coding CPT Codes CPT Codes: ANESTH HIP ARTHROPLASTY - 73752 ([id number]) P2 - PATIENT W/MILD SYST DISEASE, QK - CNA LTC 2-4 CNCRNT ANES PROC, QX - MEDICAL RECORDS ADMINISTRATOR SVC W/ MD MED DIRECTION
--- NOTE | 2025-03-07 09:27 | PM.ORPRC ---
Procedure Note Date of procedure: 03/07/25 Procedure: PREOPERATIVE DIAGNOSIS: 1. Right hip osteoarthritis, severe, primary POSTOPERATIVE DIAGNOSIS: 1. Right hip osteoarthritis, severe, primary PROCEDURE: 1. Right total hip arthroplasty-anterior approach 2. Intraoperative fluoroscopy interpreted by Leif Alfredo M.D. for intraoperative evaluation of arthroplasty implant component positioning and leg length/offset evaluation. Fluoroscopy time was 45.4 seconds. SURGEON: Leif Alfredo MD. BROADCAST SYSTEMS ENGINEER: Lam Davis PA-C; EVY Pickens - Of note, a skilled entry level assistant manager was critical for this case to aid in patient positioning, tissue retraction, limb manipulation/positioning, and closure. ANESTHESIA: Spinal anesthetic EBL: 300 mL IMPLANTS: DePuy J[employer]J uncemented total hip [place] cup size 48, hole eliminator, +0 neutral liner Actis stem, high offset, size 4 +1 mm ceramic 32mm head COMPLICATIONS: None evident INDICATIONS: The patient is a pleasant 59-year-old female who has experienced severe right hip pain and difficulty bearing weight. Workup included x-rays which revealed severe osteoarthrosis in the hip. Given the deformity, the dysfunction, and the pain, as well as the failure of nonoperative management, recommendation was made for surgery. FINDINGS: Full-thickness chondral loss femoral head and acetabulum. Osteophytes around the rim of the acetabulum and femoral head/neck junction. Moderate effusion upon entering the joint. DESCRIPTION OF PROCEDURE: Following a thorough discussion of risks, benefits, and alternatives consent was obtained and the right hip was marked. The patient was brought to the operating room and placed supine on the operating table. Induction of anesthesia was undertaken. 1 g IV Ancef and 1 g tranexamic acid was administered within 1 hr of incision preoperatively. Proper time-out was performed identifying proper patient, site, procedure. The operative extremity was prepped and draped in the appropriate sterile fashion using ChloraPrep after the patient was positioned on the [place] table with head in neutral alignment and all bony prominences well padded. C-arm fluoroscopic imaging was utilized to confirm proper pelvis rotation and position, and to get true AP films of both the contralateral left, and the affected right hip. This is for comparison. A longitudinal incision was made starting just distal to the ASIS, aiming distal and lateral at an oblique angle relative to the thigh. The incision was extended distally aiming toward the fibular head. Sharp incision through skin and bovie cautery through the subcutaneous tissue allowed identification of the TFL fascia. This was sharply divided, and the fascia bluntly released from the muscle fibers as we dissected medial. Upon coming to the medial border, we were able to retract the TFL laterally, and penetrated the deeper fascia and identify the crossing circumflex vessels. These were ligated/cauterized. The rectus was elevated from the capsule, and retractors placed laterally and medially along the femoral neck to help with visualization of the capsule. We then performed an inverted T capsulotomy. The capsule was tagged for later repair. Retractors were placed inside the capsule. The femoral neck was visualized after releasing medially down to the lesser trochanter, along the saddle laterally, and up onto the acetabulum. The femoral neck cut was made in line with our preoperative templating. The head was removed in a single piece, and sized. We turned our attention to acetabular preparation. Initially, the labrum was resected from around the perimeter, the pulvinar was excised, allowing us to visualize the false wall. We started the reaming with a 43 mm reamer. This was medialized down to the true wall. We then enlarged our reamers sequentially up to one size less than the selected cup size. We trialed at the same size and found it to have an excellent fit. The selected cup was then opened, inserted, and impacted in line with the goal of 40? of abduction, and 20-25? of anteversion. This was confirmed on C-arm fluoroscopic imaging to be in the appropriate/goal position. Once the cup was placed we placed a hole eliminator and a liner consistent with preop planning. Attention was turned to the femoral preparation. The limb was extended, externally rotated, and adducted. The posteromedial capsule was released, as retractors were placed allowing excellent access to the proximal femur. Initially a box loader was followed by canal finder followed by various broaches. We broached sequentially up to the size noted above, found it to have excellent rotational control, and trialing various heads and necks, revealed that appropriate neck offset, and the above noted head size provided the greatest stability, and adventism of length, and offset. C-arm fluoroscopic imaging confirmed position of the stem, as well as leg lengths, which were compared with the pre procedure all fluoroscopic images. Trial implants were removed, the real femoral stem inserted, as was the appropriate head. After reducing, the leg was placed through range of motion and stability was confirmed anterior, posterior, and lateral. A 3 min Betadine soak was then performed, and thorough irrigation with normal saline followed. Closure of the capsule was performed with #1 PDS. Bleeding was confirmed to be controlled at this stage, and the TFL fascia was closed with #0 strata fix. Subcutaneous, and subcuticular closure was performed with 2-0 Stratafix and 4-0 Stratafix, respectively. Dressings were applied, and the patient was awoken from anesthesia and transferred the PACU in stable condition. A skilled entry level assistant manager was critical for this case to aid in patient positioning, tissue retraction, acetabular and proximal femoral exposure, limb manipulation/positioning, dislocation/relocation, patient safety, and closure. PLAN: 1. Weight bear as tolerated operative extremity. 2. 23 hr perioperative antibiotics. 3. Ice. 4. PT/OT consults for ambulation assistance/mobility education. 5. Social work consult for discharge planning. 6. DVT prophylaxis with at SCDs and Xarelto x5 days followed by aspirin for a total of 1 month.
--- NOTE | 2025-03-07 10:36 | SUR.PHASEI ---
patient met discharge criteria per anesthesia
--- NOTE | 2025-03-07 12:46 | SUR.PHASEII ---
Pt assisted to commode by 2 RN's. Pt able to pivot using her left leg, as right leg is still weak. Able to void large amount. Pt back to bed and given 50 mcg Fentanyl for pain as b/p and pain jonathan after getting up. Will have pt do therapy in a little while. Continue to monitor.
[2025-03-07] MEDS: ACETAMINOPHEN 500 MG TABLET PO (13:07)
== END 2025-03-07 14:40 | disposition home or self-care (01) ==
LOC: OR 06:01
PROVIDERS: PCP Physician Assistant Medical; Visit Provider Orthopaedic Surgery Sports Medicine
PROC: (CPT 27130; principal; 2025-03-07 07:15)
DX: M16.11 Unilateral primary osteoarthritis, right hip (principal); G89.18 Other acute postprocedural pain
CPT/HCPCS: 27130; 01214; 36415; 64450; 73501; 76942; 86850; 86900; 86901; 97110; 97116; 97161; 97165; 97530; 97535; A9270; C1776; J0690; J1100; J2250; J2371; J2405; J2704; J2795; J3010; J3490; J7120